=== PATIENT | male | born 1995 | race Caucasian/White ===

== ENCOUNTER 2017-07-20 23:29 | Emergency (ER) | payer BC, OTHER ==
[~2017-07-20] VITALS: Ht 182.9 cm; Wt 91.5 kg
[2017-07-20 23:40] VITALS: TEMP 36.9; Ht 182.9 cm; Wt 91.5 kg
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
[2017-07-21 00:55] LABS: HEMATOCRIT 47.1 % (42-52); MEAN CELL VOLUME 83.4 fL (80-100); MEAN CORPUSCULAR HEMOGLOBIN 25.7 pg (25-34); MEAN CORPUSCULAR HGB CONC 30.8 g/dl (32-36); MEAN PLATELET VOLUME 10.3 fL (7.4-10.4); PLATELET COUNT 329 K/uL (130-400); RED BLOOD COUNT 5.65 M/uL (4.7-6.1); WHITE BLOOD COUNT 8.24 K/uL (4.8-10.8)
[2017-07-21 01:38] LABS: BUN/CREATININE RATIO 8.3 (10-20); CALCIUM 9.4 mg/dl (8.5-10.1); CREATININE 1.2 mg/dl (0.60-1.40); POTASSIUM 3.6 mmol/L (3.5-5.1)
[2017-07-21 01:45] LABS: ACETAMINOPHEN < 2 ug/ml (10-30)
[2017-07-21 01:48] LABS: THYROID STIMULATING HORMONE 2.17 uIu/ml (0.300-4.500)
[2017-07-21 01:54] LABS: URINE APPEARANCE CLEAR (CLEAR); URINE BILIRUBIN NEG (NEG); URINE COLOR YELLOW; URINE NITRITE NEG (NEG); URINE SPECIFIC GRAVITY 1.025 (1.000-1.030); UROBILINOGEN NEG (NEG)
[2017-07-21 01:58] LABS: MANUAL MICROSCOPIC REQUIRED? NO; REVIEW REQ? NO
[2017-07-21 02:23] LABS: BENZODIAZEPINE, URINE NEG (NEG); COCAINE,URINE NEG (NEG); PHENCYCLIDINE, URINE NEG (NEG)
[2017-07-21 05:48] VITALS: BP 157/94; PULSE 92; O2SAT 98
== END 2017-07-21 05:49 ==
LOC: C.EDB 23:30 → C.EDA 07-21 05:49
DX: Z00.8 Encounter for other general examination (principal); R45.851 Suicidal ideations